=== PATIENT | female | born 1995 | race Caucasian/White ===

== ENCOUNTER 2019-01-21 06:55 | Inpatient (IN) | payer MEDICAID ==
[~2019-01-21] VITALS: Ht 147.3 cm; Wt 69.9 kg
[2019-01-21] MEDS ORDERED: CEFAZOLIN 2 GM IVPB PREMIX 50 ML IV ONE (08:15)
[2019-01-21] MEDS ORDERED: LR 1,000 ML IV ONE (08:15)
[2019-01-21] MEDS ORDERED: AMPICILLIN SODIUM 2 GM in NS 100 ML IV ONE (08:45)
[2019-01-21 09:07] LABS: BILIRUBIN,URINE NEGATIVE (NEGATIVE); BLOOD, URINE NEGATIVE (NEGATIVE); CLARITY/URINE CLEAR (CLEAR); COLOR,URINE YELLOW (YELLOW); GLUCOSE,URINE NEGATIVE (NEGATIVE); KETONES,URINE NEGATIVE (NEGATIVE); LEUKOCYTE ESTERASE ,URINE TRACE (NEGATIVE); NITRITE, URINE NEGATIVE (NEGATIVE); PROTEIN URINE NEGATIVE (NEGATIVE); UROBILINOGEN,URINE 0.2 (0.2-1.0)
[2019-01-21 09:12] LABS: BACTERIA,URINE FEW /HPF (None Seen); RBC,URINE 0-3 /HPF (0-3); URINE AMORPHOUS URATE 1+ /HPF (None Seen)
[2019-01-21 09:34] VITALS: BP_SYST 115
[2019-01-21 10:17] LABS: HEMATOCRIT 37.2 % (36-48); HEMOGLOBIN 12.8 g/dL (12.0-16.0); MEAN CORPUSCULAR HEMOGLOBIN 30 pg (27-31); MEAN CORPUSCULAR HGB CONC 34 % (32-36); MEAN CORPUSCULAR VOLUME 86 fL (79.0-98.0); PLATELET COUNT (AUTO) 177 K/uL (130-430); RED BLOOD CELL COUNT(AUTO) 4.31 MIL/uL (4.2-6.2); RED CELL DISTRIBUTION WIDTH 13.3 % (9.0-15.0); WHITE BLOOD COUNT (AUTO) 10.4 K/uL (4.8-10.8)
[2019-01-21 10:18] LABS: BASOPHILS % (AUTO) 0.2 % (0.0-2.0); EOSINOPHILS # (AUTO) 0.1 K/uL (0.0-0.4); EOSINOPHILS % (AUTO) 0.9 % (0.0-4.0); LYMPHOCYTES # (AUTO) 2.2 K/uL (1.0-5.5); LYMPHOCYTES % (AUTO) 21.1 % (20.5-51.5); MONOCYTES # (AUTO) 0.7 K/uL (0.0-1.0); MONOCYTES % (AUTO) 6.8 % (1.7-9.3); NEUTROPHILS # (AUTO) 7.4 K/uL (1.8-7.7)
[2019-01-21] MEDS ORDERED: fentaNYL CITRATE/PF 100 MCG/2 ML AMP IVP PRN ×2 (11:15)
[2019-01-21] MEDS ORDERED: NALBUPHINE HCL 10 MG/ML AMP IVP PRN (11:15)
[2019-01-21] MEDS ORDERED: DIPHENHYDRAMINE INJ 50 MG/ML VIAL IVP PRN (11:15)
[2019-01-21] MEDS ORDERED: NALOXONE HCL 0.4 MG/ML AMP (NARCAN) IVP PRN ×2 (11:15)
[2019-01-21] MEDS ORDERED: ONDANSETRON HCL 4 MG/2 ML VIAL IVP PRN (11:15)
[2019-01-21] MEDS ORDERED: MORPHINE SULFATE 10MG/10ML PF AMP SP SCH (11:15)
[2019-01-21] MEDS ORDERED: KETOROLAC TROMETHAMINE 60 MG/2 ML VIAL IM PRN (11:15)
[2019-01-21] MEDS ORDERED: ePHEDrine sulfate 50 MG/ML VIAL IVP ONE (12:16)
[2019-01-21] MEDS ORDERED: MORPHINE SULFATE 10MG/10ML PF AMP EP ONE (12:16)
[2019-01-21] MEDS ORDERED: LR 1,000 ML IV.SOLN IV ONE (12:16)
[2019-01-21] MEDS ORDERED: NS IRRIG SOLN 1000 ML IR ONE (12:16)
[2019-01-21] MEDS ORDERED: BUPIVACAINE /PF 0.75% 10 ML VIAL INJ ONE (12:16)
[2019-01-21] MEDS ORDERED: AMPICILLIN SODIUM 1 GM in NS 50 ML IV SCH (13:00)
[2019-01-21 13:10] VITALS: BP_SYST 116
[2019-01-21] MEDS ORDERED: OXYTOCIN/0.9 % SODIUM CHLORIDE 1,000 ML IV ONE ×2 (13:30→15:50)
[2019-01-21] MEDS ORDERED: DIPH-TET-PERTUS Vaccine 0.5 ML VIAL (ADACEL) I.M. PRN (16:00)
[2019-01-22] MEDS: OXYCODONE/ACETAMINOPHEN 5-325 TABLET PO PRN ×3 (01:50→23:56)
[2019-01-22] MEDS: SIMETHICONE 80 MG TAB.CHEW PO PRN ×4 (06:00→22:22)
[2019-01-22] MEDS: IBUPROFEN 600 MG TABLET PO SCH ×5 (06:00→23:48)
[2019-01-22] MEDS ORDERED: HYDROcodone/ACETAMIN 5-325 MG TAB (NORCO/ VICODIN) PO PRN (07:00)
[2019-01-22] MEDS ORDERED: OXYCODONE/ACETAMINOPHEN 5-325 TABLET PO PRN (07:00)
[2019-01-22 07:31] LABS: BASOPHILS % (AUTO) 0.3 % (0.0-2.0); EOSINOPHILS # (AUTO) 0.1 K/uL (0.0-0.4); EOSINOPHILS % (AUTO) 0.9 % (0.0-4.0); HEMATOCRIT 35.6 % (36-48); HEMOGLOBIN 12.1 g/dL (12.0-16.0); LYMPHOCYTES # (AUTO) 1.9 K/uL (1.0-5.5); LYMPHOCYTES % (AUTO) 17.9 % (20.5-51.5); MEAN CORPUSCULAR HEMOGLOBIN 29 pg (27-31); MEAN CORPUSCULAR HGB CONC 34 % (32-36); MEAN CORPUSCULAR VOLUME 86 fL (79.0-98.0); MONOCYTES # (AUTO) 0.9 K/uL (0.0-1.0); MONOCYTES % (AUTO) 8.2 % (1.7-9.3); NEUTROPHILS # (AUTO) 7.8 K/uL (1.8-7.7); NEUTROPHILS % (AUTO) 72.7 % (40.0-70.0); PLATELET COUNT (AUTO) 148 K/uL (130-430); RED BLOOD CELL COUNT(AUTO) 4.13 MIL/uL (4.2-6.2); RED CELL DISTRIBUTION WIDTH 12.8 % (9.0-15.0); WHITE BLOOD COUNT (AUTO) 10.7 K/uL (4.8-10.8)
[2019-01-22] MEDS: DOCUSATE SODIUM 100 MG CAPSULE PO PRN (18:13)
[2019-01-23] MEDS: IBUPROFEN 600 MG TABLET PO SCH ×3 (06:40→18:13)
[2019-01-23] MEDS: SIMETHICONE 80 MG TAB.CHEW PO PRN ×3 (09:08→21:42)
[2019-01-23] MEDS: DOCUSATE SODIUM 100 MG CAPSULE PO PRN ×2 (09:08→21:41)
[2019-01-23] MEDS: OXYCODONE/ACETAMINOPHEN 5-325 TABLET PO PRN ×4 (09:08→21:42)
[2019-01-24] MEDS: OXYCODONE/ACETAMINOPHEN 5-325 TABLET PO PRN ×2 (07:49→11:15)
[2019-01-24] MEDS: SIMETHICONE 80 MG TAB.CHEW PO PRN (11:15)
[2019-01-24] MEDS: IBUPROFEN 600 MG TABLET PO SCH ×2 (11:15→17:16)
== END 2019-01-24 18:05 | disposition home or self-care (01) | DRG 540 ==
LOC: SPU 06:55
PROVIDERS: ADMIT Obstetrics & Gynecology; ATTEND Obstetrics & Gynecology
PROC: 10D00Z1 Extraction of Products of Conception, Low, Open Approach (ICD-10-PCS; principal; 2019-01-21 12:00)
DX: O34.211 Maternal care for low transverse scar from previous cesarean delivery (principal); O99.824 Streptococcus B carrier state complicating childbirth; Z37.0 Single live birth; Z3A.39 39 weeks gestation of pregnancy
CPT/HCPCS: 36415; 81000-TC; 85025; 86592; 86886; 86900; 86901; 90715; 94760; J0290; J0690; J2274; J2590; J3490; J7120